=== PATIENT | female | born 1990 | race Caucasian/White ===

== ENCOUNTER 2019-07-20 23:53 | Inpatient (IN) | payer BC, MEDICARE ==
[~2019-07-20] VITALS: Ht 160 cm; Wt 64.9 kg
[2019-07-21] MEDS ORDERED: QUET300T2 PO (00:23)
[2019-07-21] MEDS ORDERED: OXCA300T29 PO (00:23)
[2019-07-21] MEDS ORDERED: CEPH-582 PO (00:23)
[2019-07-21] MEDS ORDERED: CARI4.5C PO (00:23)
[2019-07-21] MEDS ORDERED: LEVO88TA4 PO (00:23)
[2019-07-21] MEDS ORDERED: BUSP15 PO (00:23)
[2019-07-21] MEDS ORDERED: LAMO100 PO (00:23)
[2019-07-21] MEDS ORDERED: PROP40TA7 PO (00:23)
[2019-07-21] MEDS ORDERED: BUPR-47 PO (00:23)
[2019-07-21] MEDS ORDERED: ATOM10CA4 PO (00:23)
[2019-07-21] MEDS ORDERED: [UNRECOGNIZED DRUG - CODE] PO (00:23)
[2019-07-21 01:41] LABS: AMPHET/METH SCREEN,URINE NEGATIVE (NEGATIVE); BARBITURATE SCREEN, URINE NEGATIVE (NEGATIVE); BENZODIAZEPINES SCREEN,URINE NEGATIVE (NEGATIVE); CANNABINOID SCREEN,URINE NEGATIVE (NEGATIVE); COCAINE SCREEN,URINE NEGATIVE (NEGATIVE); METHADONE SCREEN, URINE NEGATIVE (NEGATIVE); OPIATE SCREEN,URINE NEGATIVE (NEGATIVE)
[2019-07-21 01:42] LABS: PHENCYCLIDINE SCREEN,URINE NEGATIVE (NEGATIVE)
[2019-07-21 01:45] LABS: BASOPHILS % (AUTO) 0.6 % (0.0-2.0); EOSINOPHILS % (AUTO) 1.5 % (1.0-6.0); HEMATOCRIT 43.6 % (36-46); HEMOGLOBIN 14.4 g/dL (12.0-16.0); LYMPHOCYTES # (AUTO) 2.5 K/uL (1.0-4.8); MEAN CORPUSCULAR HEMOGLOBIN 29.8 pg (26.0-34.0); MEAN CORPUSCULAR VOLUME 91 fL (80-100); MONOCYTES # (AUTO) 1.1 K/uL (0.1-1.0); MONOCYTES % (AUTO) 9.9 % (2.0-9.0); NEUTROPHILS # (AUTO) 7.6 K/uL (1.8-7.7); PLATELET COUNT (AUTO) 299 K/uL (150-450); RED BLOOD CELL COUNT(AUTO) 4.82 MIL/uL (4.00-5.20); RED CELL DISTRIBUTION WIDTH 12.7 % (11.5-14.5)
[2019-07-21] MEDS ORDERED: CEPHALEXIN MONOHYDRATE 500 MG CAPSULE PO ONE ×2 (01:45→09:00)
[2019-07-21 01:55] LABS: ANION GAP 6 mmol/L (8-16); CARBON DIOXIDE 30 mmol/L (22-29); CHLORIDE 100 mmol/L (98-107); CREATININE 0.81 mg/dL (0.60-1.30); GLOMERULAR FILTR. RATE CALC > 60 mL/min (>60); GLUCOSE,RANDOM 82 mg/dL (70-110); POTASSIUM 4.3 mmol/L (3.5-5.1); SODIUM SERUM 136 mmol/L (136-145); UREA NITROGEN, BLOOD 23 mg/dL (7-18)
[2019-07-21 01:58] LABS: APPEARANCE,URINE CLEAR (CLEAR); BILIRUBIN,URINE NEGATIVE (NEGATIVE); GLUCOSE, URINE (UA) NEGATIVE (NEGATIVE); KETONES,URINE NEGATIVE (NEGATIVE); LEUKOCYTE ESTERASE ,URINE NEGATIVE (NEGATIVE); NITRATE,URINE NEGATIVE (NEGATIVE); OCCULT BLOOD,URINE NEGATIVE (NEGATIVE); PH,URINE 6.5 (5.0-8.0); PROTEIN,URINE NEGATIVE (NEGATIVE); UROBILINOGEN,URINE 0.2 mg/dL (<=1.0)
[2019-07-21 02:07] LABS: ALANINE AMINOTRANSFERASE 38 U/L (12-78); ALBUMIN 4.4 g/dL (3.4-5.0); ALKALINE PHOSPHATASE 97 U/L (46-116); ASPARTATE AMINOTRANSFERASE 37 U/L (15-37); BILIRUBIN,TOTAL 0.2 mg/dL (0.1-1.0); HCG,QUANTITATIVE < 1 mIU/mL (0-6); TOTAL PROTEIN, SERUM 8.4 g/dL (6.4-8.2)
[2019-07-21] MEDS ORDERED: LORazepam 2 MG TABLET PO PRN (02:15)
[2019-07-21 02:16] LABS: BACTERIA,URINE None Seen /HPF (None Seen); RBC,URINE None Seen /HPF (0-2); SQUAMOUS EPITHELIAL CELL,UR Few /LPF (None Seen); WBC,URINE None Seen /HPF (0-5)
[2019-07-21] MEDS: ZOLPIDEM TARTRATE 10 MG TABLET PO PRN (03:36)
[2019-07-21 04:23] VITALS: BP 129/83
[2019-07-21] MEDS ORDERED: INFLUENZA VIRUS VACCINE QVS 2019-20 (3YR+)/PF 60 MCG/0.5 ML SYRINGE IM ONE (04:45)
[2019-07-21 09:26] VITALS: BP 124/83
[2019-07-21] MEDS: CEPHALEXIN MONOHYDRATE 500 MG CAPSULE PO SCH ×3 (09:40→16:15)
[2019-07-21] MEDS: NICOTINE 21 MG/24 HOUR PATCH TD SCH (09:41)
[2019-07-21 16:48] VITALS: BP 122/74
[2019-07-21 20:03] VITALS: BP 137/72
[2019-07-21] MEDS: LORazepam 1 MG TABLET PO PRN (20:03)
[2019-07-21] MEDS: HALOPERIDOL 5 MG TABLET PO PRN (20:07)
[2019-07-21] MEDS ORDERED: DiphenhydrAMINE HCL 50 MG/ML VIAL IM ONE (20:30)
[2019-07-22 00:08] VITALS: BP 105/74
[2019-07-22] MEDS: HALOPERIDOL 5 MG TABLET PO PRN ×2 (01:07→17:49)
[2019-07-22 07:57] LABS: CHOL/HDL RATIO 2.3 (3.9-5.7)
[2019-07-22 09:15] VITALS: BP 116/59
[2019-07-22] MEDS: NICOTINE 21 MG/24 HOUR PATCH TD SCH (11:36)
[2019-07-22] MEDS: QUEtiapine FUMARATE 100 MG TABLET PO SCH (11:36)
[2019-07-22] MEDS: MULTIVITAMINS WITH MINERALS, THERAPEUTIC TABLET PO SCH (14:49)
[2019-07-22 16:35] VITALS: BP 121/74
[2019-07-22] MEDS: LORazepam 1 MG TABLET PO PRN (17:49)
[2019-07-22] MEDS: QUEtiapine FUMARATE 200 MG TABLET PO SCH (20:29)
[2019-07-23 08:01] LABS: MAGNESIUM 2.1 mg/dL (1.80-2.40); PHOSPHORUS 4.3 mg/dL (2.5-4.9)
[2019-07-23] MEDS: QUEtiapine FUMARATE 100 MG TABLET PO SCH (08:24)
[2019-07-23] MEDS: NICOTINE 21 MG/24 HOUR PATCH TD SCH (08:25)
[2019-07-23] MEDS: LORazepam 1 MG TABLET PO PRN ×2 (08:25→16:15)
[2019-07-23] MEDS: MULTIVITAMINS WITH MINERALS, THERAPEUTIC TABLET PO SCH (08:25)
[2019-07-23 10:00] VITALS: BP 102/69
[2019-07-23] MEDS ORDERED: PETROLATUM,WHITE 28 GM JELLY TP PRN (13:45)
[2019-07-23] MEDS: QUEtiapine FUMARATE 200 MG TABLET PO SCH (20:07)
[2019-07-23] MEDS: ZOLPIDEM TARTRATE 10 MG TABLET PO PRN (20:44)
[2019-07-23 21:54] VITALS: BP 127/77
[2019-07-24] MEDS: MULTIVITAMINS WITH MINERALS, THERAPEUTIC TABLET PO SCH (08:23)
[2019-07-24] MEDS: QUEtiapine FUMARATE 100 MG TABLET PO SCH (08:23)
[2019-07-24] MEDS: NICOTINE 21 MG/24 HOUR PATCH TD SCH (08:24)
[2019-07-24] MEDS ORDERED: QUET100T PO (12:39)
[2019-07-24] MEDS ORDERED: MULT-1239 PO (12:40)
[2019-07-24 12:50] VITALS: BP 125/74
== END 2019-07-24 14:12 | DRG 885 ==
LOC: EMS 23:54 → 3EI 07-21 02:53
PROVIDERS: ADMIT Psychiatry & Neurology Child & Adolescent Psychiatry; ATTEND Psychiatry & Neurology Child & Adolescent Psychiatry
DX: F25.9 Schizoaffective disorder, unspecified (principal); N39.0 Urinary tract infection, site not specified; R45.851 Suicidal ideations; E03.9 Hypothyroidism, unspecified; F10.10 Alcohol abuse, uncomplicated; Z71.41 Alcohol abuse counseling and surveillance of alcoholic; F41.0 Panic disorder [episodic paroxysmal anxiety]; F42.9 Obsessive-compulsive disorder, unspecified; F43.10 Post-traumatic stress disorder, unspecified; M79.7 Fibromyalgia; Z87.891 Personal history of nicotine dependence
CPT/HCPCS: 83735; 84100; 87081; G0480; J1200; J3230

== ENCOUNTER 2019-07-29 12:12 | Inpatient (IN) | payer BC ==
[~2019-07-29] VITALS: Ht 160 cm; Wt 66.5 kg
[~2019-07-29 12:12] MED LIST: MULT-1239 PO; QUET100T PO; QUET300T2 PO
[2019-07-29 13:54] LABS: BASOPHILS % (AUTO) 0.6 % (0.0-2.0); EOSINOPHILS % (AUTO) 2.7 % (1.0-6.0); HEMATOCRIT 42.9 % (36-46); HEMOGLOBIN 14.7 g/dL (12.0-16.0); LYMPHOCYTES # (AUTO) 2.8 K/uL (1.0-4.8); LYMPHOCYTES % (AUTO) 41.6 % (22.0-44.0); MEAN CORPUSCULAR HEMOGLOBIN 30.6 pg (26.0-34.0); MEAN CORPUSCULAR HGB CONC 34.3 G/dL (31.0-37.0); MEAN CORPUSCULAR VOLUME 89 fL (80-100); MONOCYTES # (AUTO) 0.4 K/uL (0.1-1.0); MONOCYTES % (AUTO) 6.5 % (2.0-9.0); NEUTROPHILS # (AUTO) 3.3 K/uL (1.8-7.7); NEUTROPHILS % (AUTO) 48.6 % (40.0-70.0); PLATELET COUNT (AUTO) 286 K/uL (150-450); RED BLOOD CELL COUNT(AUTO) 4.81 MIL/uL (4.00-5.20); RED CELL DISTRIBUTION WIDTH 12.8 % (11.5-14.5)
[2019-07-29 13:58] LABS: AMPHET/METH SCREEN,URINE NEGATIVE (NEGATIVE); BARBITURATE SCREEN, URINE NEGATIVE (NEGATIVE); BENZODIAZEPINES SCREEN,URINE NEGATIVE (NEGATIVE); CANNABINOID SCREEN,URINE NEGATIVE (NEGATIVE); COCAINE SCREEN,URINE NEGATIVE (NEGATIVE); METHADONE SCREEN, URINE NEGATIVE (NEGATIVE); OPIATE SCREEN,URINE NEGATIVE (NEGATIVE)
[2019-07-29 14:01] LABS: PHENCYCLIDINE SCREEN,URINE NEGATIVE (NEGATIVE)
[2019-07-29 14:10] LABS: ANION GAP 4 mmol/L (8-16); CARBON DIOXIDE 32 mmol/L (22-29); CHLORIDE 103 mmol/L (98-107); CREATININE 0.78 mg/dL (0.60-1.30); GLOMERULAR FILTR. RATE CALC > 60 mL/min (>60); GLUCOSE,RANDOM 77 mg/dL (70-110); POTASSIUM 3.8 mmol/L (3.5-5.1); SODIUM SERUM 139 mmol/L (136-145); UREA NITROGEN, BLOOD 16 mg/dL (7-18)
[2019-07-29 14:16] LABS: ALANINE AMINOTRANSFERASE 33 U/L (12-78); ALKALINE PHOSPHATASE 102 U/L (46-116); ASPARTATE AMINOTRANSFERASE 19 U/L (15-37); BILIRUBIN,TOTAL 0.2 mg/dL (0.1-1.0); TOTAL PROTEIN, SERUM 7.8 g/dL (6.4-8.2)
[2019-07-29] MEDS ORDERED: QUET200T PO (14:24)
[2019-07-29] MEDS ORDERED: IBUPROFEN 600 MG TABLET PO ONE (14:30)
[2019-07-29 17:31] VITALS: BP 134/85
[2019-07-29] MEDS: HALOPERIDOL 5 MG TABLET PO PRN (17:31)
[2019-07-29] MEDS ORDERED: INFLUENZA VIRUS VACCINE QVS 2019-20 (3YR+)/PF 60 MCG/0.5 ML SYRINGE IM ONE (17:45)
[2019-07-29] MEDS: NICOTINE 7 MG/24 HOUR PATCH TD SCH (20:00)
[2019-07-29] MEDS: QUEtiapine FUMARATE 200 MG TABLET PO SCH (20:25)
[2019-07-29] MEDS: ZOLPIDEM TARTRATE 10 MG TABLET PO PRN (20:58)
[2019-07-30 05:43] VITALS: BP 99/57
[2019-07-30 07:54] LABS: CHOL/HDL RATIO 3.2 (3.9-5.7); FREE T4 (FREE THYROXINE) 0.92 ng/dL (0.76-1.46); THYROID STIMULATING HORMONE 4.55 uIU/mL (0.36-3.74)
[2019-07-30] MEDS: NICOTINE 7 MG/24 HOUR PATCH TD SCH (09:20)
[2019-07-30] MEDS: QUEtiapine FUMARATE 100 MG TABLET PO SCH (09:20)
[2019-07-30] MEDS: MULTIVITAMINS WITH MINERALS, THERAPEUTIC TABLET PO SCH (10:29)
[2019-07-30 10:30] VITALS: BP 120/70
[2019-07-30] MEDS: GABAPENTIN 300 MG CAPSULE PO SCH ×2 (12:09→16:12)
[2019-07-30] MEDS: ESCITALOPRAM OXALATE 10 MG TABLET PO SCH (12:09)
[2019-07-30 16:11] VITALS: BP 124/69
[2019-07-30] MEDS: LORazepam 2 MG TABLET PO PRN (17:53)
[2019-07-30] MEDS: QUEtiapine FUMARATE 200 MG TABLET PO SCH (20:17)
[2019-07-31 06:07] VITALS: BP 104/66
[2019-07-31 08:03] LABS: PHOSPHORUS 3.9 mg/dL (2.5-4.9)
[2019-07-31 08:05] VITALS: BP 127/66
[2019-07-31] MEDS: GABAPENTIN 300 MG CAPSULE PO SCH ×2 (08:57→16:03)
[2019-07-31] MEDS: ESCITALOPRAM OXALATE 10 MG TABLET PO SCH (08:57)
[2019-07-31] MEDS: QUEtiapine FUMARATE 100 MG TABLET PO SCH (08:57)
[2019-07-31] MEDS: MULTIVITAMINS WITH MINERALS, THERAPEUTIC TABLET PO SCH (08:57)
[2019-07-31] MEDS: NICOTINE 7 MG/24 HOUR PATCH TD SCH (08:58)
[2019-07-31] MEDS: HYDROCORTISONE 1% 30 GM OINTMENT TP SCH (16:03)
[2019-07-31 16:04] VITALS: BP 113/69
[2019-07-31] MEDS: QUEtiapine FUMARATE 200 MG TABLET PO SCH (19:59)
[2019-08-01 00:02] VITALS: BP 111/63
[2019-08-01] MEDS: HALOPERIDOL 5 MG TABLET PO PRN ×2 (00:04→20:04)
[2019-08-01] MEDS: ZOLPIDEM TARTRATE 10 MG TABLET PO PRN (00:04)
[2019-08-01 05:13] VITALS: BP 110/63
[2019-08-01] MEDS ORDERED: ACETAMINOPHEN 325 MG TABLET PO PRN (06:30)
[2019-08-01 08:16] VITALS: BP 109/64
[2019-08-01] MEDS: QUEtiapine FUMARATE 100 MG TABLET PO SCH (08:27)
[2019-08-01] MEDS: GABAPENTIN 300 MG CAPSULE PO SCH ×2 (08:27→16:50)
[2019-08-01] MEDS: MULTIVITAMINS WITH MINERALS, THERAPEUTIC TABLET PO SCH (08:27)
[2019-08-01] MEDS: ESCITALOPRAM OXALATE 10 MG TABLET PO SCH (08:27)
[2019-08-01] MEDS: LORazepam 2 MG TABLET PO PRN (08:29)
[2019-08-01] MEDS: HYDROCORTISONE 1% 30 GM OINTMENT TP SCH ×2 (08:29→17:08)
[2019-08-01] MEDS: NICOTINE 7 MG/24 HOUR PATCH TD SCH (08:31)
[2019-08-01] MEDS: NYSTATIN 30 GM CREAM TP SCH ×2 (12:22→17:07)
[2019-08-01 16:40] VITALS: BP 108/70
[2019-08-01] MEDS: QUEtiapine FUMARATE 200 MG TABLET PO SCH (20:03)
[2019-08-02 05:17] VITALS: BP 102/68
[2019-08-02 08:22] VITALS: BP 100/61
[2019-08-02] MEDS: GABAPENTIN 300 MG CAPSULE PO SCH ×2 (08:45→16:41)
[2019-08-02] MEDS: ESCITALOPRAM OXALATE 10 MG TABLET PO SCH (08:45)
[2019-08-02] MEDS: NICOTINE 7 MG/24 HOUR PATCH TD SCH (08:46)
[2019-08-02] MEDS: LORazepam 2 MG TABLET PO PRN (08:46)
[2019-08-02] MEDS: QUEtiapine FUMARATE 100 MG TABLET PO SCH (08:46)
[2019-08-02] MEDS: MULTIVITAMINS WITH MINERALS, THERAPEUTIC TABLET PO SCH (08:46)
[2019-08-02] MEDS: HYDROCORTISONE 1% 30 GM OINTMENT TP SCH ×2 (09:37→16:41)
[2019-08-02] MEDS: NYSTATIN 30 GM CREAM TP SCH ×2 (09:37→16:42)
[2019-08-02 16:18] VITALS: BP 110/52
[2019-08-02] MEDS: ZOLPIDEM TARTRATE 10 MG TABLET PO PRN (20:30)
[2019-08-02] MEDS: QUEtiapine FUMARATE 200 MG TABLET PO SCH (20:31)
[2019-08-03 02:22] VITALS: BP 103/71
[2019-08-03] MEDS: HALOPERIDOL 5 MG TABLET PO PRN (02:26)
[2019-08-03] MEDS: LORazepam 2 MG TABLET PO PRN ×2 (06:28→15:47)
[2019-08-03 08:01] VITALS: BP 107/66
[2019-08-03] MEDS: HYDROCORTISONE 1% 30 GM OINTMENT TP SCH ×2 (08:11→16:54)
[2019-08-03] MEDS: QUEtiapine FUMARATE 100 MG TABLET PO SCH (08:12)
[2019-08-03] MEDS: MULTIVITAMINS WITH MINERALS, THERAPEUTIC TABLET PO SCH (08:12)
[2019-08-03] MEDS: NICOTINE 7 MG/24 HOUR PATCH TD SCH (08:12)
[2019-08-03] MEDS: GABAPENTIN 300 MG CAPSULE PO SCH ×2 (08:12→16:54)
[2019-08-03] MEDS: NYSTATIN 30 GM CREAM TP SCH ×2 (08:12→16:54)
[2019-08-03] MEDS: ESCITALOPRAM OXALATE 10 MG TABLET PO SCH (08:12)
[2019-08-03 16:04] VITALS: BP 135/70
[2019-08-03] MEDS ORDERED: GABA-531 PO (19:22)
[2019-08-03] MEDS ORDERED: PRAZ1 PO (19:22)
[2019-08-03] MEDS ORDERED: ESCI10TA PO (19:22)
[2019-08-03] MEDS: QUEtiapine FUMARATE 200 MG TABLET PO SCH (20:52)
[2019-08-03] MEDS: PRAZOSIN HCL 1 MG CAPSULE PO SCH (20:52)
[2019-08-03] MEDS: ZOLPIDEM TARTRATE 10 MG TABLET PO PRN (20:52)
[2019-08-04 05:01] VITALS: BP 110/68
[2019-08-04] MEDS: LORazepam 2 MG TABLET PO PRN (05:04)
[2019-08-04 08:16] VITALS: BP 100/50
[2019-08-04] MEDS: MULTIVITAMINS WITH MINERALS, THERAPEUTIC TABLET PO SCH (08:27)
[2019-08-04] MEDS: ESCITALOPRAM OXALATE 10 MG TABLET PO SCH (08:27)
[2019-08-04] MEDS: GABAPENTIN 300 MG CAPSULE PO SCH ×2 (08:27→16:56)
[2019-08-04] MEDS: QUEtiapine FUMARATE 100 MG TABLET PO SCH (08:27)
[2019-08-04] MEDS: NICOTINE 7 MG/24 HOUR PATCH TD SCH (08:29)
[2019-08-04] MEDS: HYDROCORTISONE 1% 30 GM OINTMENT TP SCH ×2 (08:30→20:16)
[2019-08-04] MEDS: NYSTATIN 30 GM CREAM TP SCH ×2 (08:31→20:16)
[2019-08-04 16:26] VITALS: BP 100/50
[2019-08-04] MEDS: BENZOCAINE/MENTHOL LOZENGE PO PRN (16:56)
[2019-08-04] MEDS: QUEtiapine FUMARATE 200 MG TABLET PO SCH (20:15)
[2019-08-04] MEDS: PRAZOSIN HCL 1 MG CAPSULE PO SCH (20:15)
[2019-08-04] MEDS ORDERED: MIRTAZAPINE 15 MG TABLET PO SCH (21:00)
[2019-08-04 21:06] VITALS: BP 108/62
[2019-08-05 03:31] VITALS: BP 112/71
[2019-08-05] MEDS: LORazepam 2 MG TABLET PO PRN (03:36)
[2019-08-05] MEDS: HALOPERIDOL 5 MG TABLET PO PRN (03:36)
[2019-08-05] MEDS: BENZOCAINE/MENTHOL LOZENGE PO PRN (03:36)
[2019-08-05 04:56] VITALS: BP 104/70
[2019-08-05 08:19] VITALS: BP 111/63
[2019-08-05] MEDS: MULTIVITAMINS WITH MINERALS, THERAPEUTIC TABLET PO SCH (09:37)
[2019-08-05] MEDS: QUEtiapine FUMARATE 100 MG TABLET PO SCH (09:37)
[2019-08-05] MEDS: ESCITALOPRAM OXALATE 10 MG TABLET PO SCH (09:37)
[2019-08-05] MEDS: GABAPENTIN 300 MG CAPSULE PO SCH (09:38)
[2019-08-05] MEDS: NICOTINE 7 MG/24 HOUR PATCH TD SCH (09:38)
[2019-08-05] MEDS: NYSTATIN 30 GM CREAM TP SCH (09:38)
[2019-08-05] MEDS: HYDROCORTISONE 1% 30 GM OINTMENT TP SCH (09:38)
[2019-08-05] MEDS ORDERED: NYST15PO3 TP (12:24)
[2019-08-05] MEDS ORDERED: MIRT-92 PO (12:26)
== END 2019-08-05 14:39 | disposition home or self-care (01) | DRG 885 ==
LOC: EMS 12:21 → B3A 15:22
PROVIDERS: ADMIT Psychiatry & Neurology Child & Adolescent Psychiatry; ATTEND Psychiatry & Neurology Child & Adolescent Psychiatry
DX: F31.9 Bipolar disorder, unspecified (principal); R45.851 Suicidal ideations; Z91.011 Allergy to milk products; F43.10 Post-traumatic stress disorder, unspecified; F42.9 Obsessive-compulsive disorder, unspecified; F17.210 Nicotine dependence, cigarettes, uncomplicated; E03.9 Hypothyroidism, unspecified; F41.9 Anxiety disorder, unspecified; F13.90 Sedative, hypnotic, or anxiolytic use, unspecified, uncomplicated; F10.10 Alcohol abuse, uncomplicated; M79.7 Fibromyalgia
CPT/HCPCS: 83735; 84100; 84439; 84443; 87081; 90686; G0480